=== PATIENT | male | born 1935 | race Caucasian/White ===

== ENCOUNTER 2017-03-06 11:30 | Inpatient (IN) | payer MEDICARE, OTHER ==
[~2017-03-06] VITALS: Ht 177.8 cm; Wt 118.0 kg
[~2017-03-06 11:30] MED LIST: ALFU10TA PO; APIX5TAB PO; ASPI-621 PO; ATOR20TA9 PO; ATOR80TA PO; CARV12.52 PO; CARV6.2512 PO; CEPH-376 PO; CLOP75TA52 PO; GLIP5TAB10 PO; ISOS60TA36 PO; LEVO88TA4 PO; LISI-170 PO; LISI5TAB7 PO; METO25TA35 PO; NITR0.4T SL; TICA90TA PO
[2017-03-06] MEDS ORDERED: DO NOT GIVE XX PRN (12:00)
[2017-03-06] MEDS ORDERED: HEPARIN wt. based STROKE protocol IV PRN (12:00)
[2017-03-06] MEDS ORDERED: HEPARIN 25,000 UNITS/500ML PMX 500 ML ONE (12:40)
[2017-03-06] MEDS: HEPARIN 25,000 UNITS/500ML PMX 500 ML IV PRN ×2 (12:48→12:51)
[2017-03-06] MEDS ORDERED: SODIUM CHLORIDE FLUSH 10ML SYR IVF PRN (13:00)
[2017-03-06] MEDS ORDERED: vitamin E PO (13:32)
[2017-03-06] MEDS ORDERED: fish oil PO (13:32)
[2017-03-06] MEDS ORDERED: vitamin D PO (13:32)
[2017-03-06] MEDS ORDERED: [UNRECOGNIZED DRUG - REMARK] (13:32)
[2017-03-06] MEDS ORDERED: CARV3.1212 PO (13:32)
[2017-03-06] MEDS ORDERED: LECI400C PO (13:33)
[2017-03-06] MEDS ORDERED: GLUCAGON 1 MG IM PRN (14:30)
[2017-03-06] MEDS ORDERED: LABETALOL 5MG/ML, 20ML IVPush PRN (14:30)
[2017-03-06] MEDS ORDERED: BISACODYL 10 MG SUPP PR PRN (14:30)
[2017-03-06] MEDS ORDERED: DEXTROSE 4 GM TAB.CHEW PO PRN (14:30)
[2017-03-06] MEDS ORDERED: ENALAPRILAT 1.25 MG/ML, 2ML IVPush PRN (14:30)
[2017-03-06] MEDS ORDERED: NITROGLYCERIN 0.4 MG BOTTLE (25 TABS) SL PRN (14:30)
[2017-03-06] MEDS ORDERED: HYDROcodone/APAP 5/325 TABLET PO PRN (14:30)
[2017-03-06] MEDS ORDERED: ONDANSETRON 2MG/ML, 2ML IVPush PRN (14:30)
[2017-03-06] MEDS ORDERED: DOCUSATE 100 MG CAPSULE PO PRN (14:30)
[2017-03-06] MEDS ORDERED: ACETAMINOPHEN 325 MG TABLET PO PRN (14:30)
[2017-03-06] MEDS ORDERED: POLYETHYLENE GLYCOL 17 GM PACKET PO PRN (14:30)
[2017-03-06] MEDS ORDERED: morphine SULFATE 10 MG/ML, 1ML IVPush PRN (14:30)
[2017-03-06] MEDS ORDERED: DEXTROSE 50%, 50ML SYRINGE IVPush PRN (14:30)
[2017-03-06 14:38] VITALS: BP 166/72
[2017-03-06 14:56] LABS: IS PT STATUS REG ER OR PRE ER? NO
[2017-03-06] MEDS ORDERED: HEPARIN 25,000 UNITS/500ML PMX 500 ML IV PRN (15:30)
[2017-03-06] MEDS ORDERED: HEPARIN 5,000 UNITS/ML, 1ML IV PRN (15:30)
[2017-03-06] MEDS: INSULIN ASPART 100 UNITS/ML, PEN SQ-INSULIN SCH ×2 (16:00→20:17)
[2017-03-06] MEDS: CARVEDILOL 6.25 MG TABLET PO SCH (18:49)
[2017-03-06 18:52] VITALS: BP 130/77
[2017-03-06 19:52] LABS: IS PT STATUS REG ER OR PRE ER? NO
[2017-03-06] MEDS: ATORVASTATIN 80 MG TABLET PO SCH (20:07)
[2017-03-06] MEDS: SODIUM CHLORIDE FLUSH 10ML SYR IVF SCH (20:07)
[2017-03-07 00:58] VITALS: BP 146/86
[2017-03-07 02:21] LABS: HEMOGLOBIN 12.6 g/dL (13.7-18.0)
[2017-03-07 02:33] LABS: BLOOD UREA NITROGEN 31 mg/dL (7-18)
[2017-03-07 05:57] VITALS: BP 125/76
[2017-03-07] MEDS: ASPIRIN 81 MG TABLET EC PO SCH (05:59)
[2017-03-07] MEDS: LEVOTHYROXINE 88 MCG TABLET PO SCH (05:59)
[2017-03-07] MEDS: CARVEDILOL 6.25 MG TABLET PO SCH ×2 (05:59→16:42)
[2017-03-07] MEDS: INSULIN ASPART 100 UNITS/ML, PEN SQ-INSULIN SCH ×4 (07:00→19:54)
[2017-03-07 07:20] VITALS: BP 122/76
[2017-03-07 07:58] LABS: IS PT STATUS REG ER OR PRE ER? NO
[2017-03-07] MEDS: SODIUM CHLORIDE FLUSH 10ML SYR IVF SCH ×2 (08:17→19:52)
[2017-03-07] MEDS: AMIODARONE 200 MG TABLET PO SCH ×3 (09:50→19:55)
[2017-03-07] MEDS: TICAGRELOR 90 MG TABLET PO SCH ×2 (10:31→19:55)
[2017-03-07] MEDS ORDERED: MIDAZOLAM 1 MG/ML, 5ML ONE (13:33)
[2017-03-07] MEDS ORDERED: FENTANYL PF 100 MCG/2ML ONE (13:33)
[2017-03-07] MEDS ORDERED: VERAPAMIL 2.5 MG/ML, 2ML ONE (13:34)
[2017-03-07] MEDS ORDERED: TICAGRELOR 90 MG TABLET ONE (13:34)
[2017-03-07] MEDS ORDERED: BIVALIRUDIN 250 MG ONE (13:34)
[2017-03-07] MEDS ORDERED: LIDOCAINE 2%, 20ML ONE ×2 (13:34→14:58)
[2017-03-07] MEDS ORDERED: HEPARIN 1,000 UNITS/ML, 10ML ONE (13:34)
[2017-03-07 16:03] VITALS: BP 133/76
[2017-03-07] MEDS: SODIUM CHLORIDE 0.9% 1,000 ML IV SCH (16:43)
[2017-03-07 19:06] VITALS: BP 126/68
[2017-03-07] MEDS: ATORVASTATIN 80 MG TABLET PO SCH (19:55)
[2017-03-08 01:02] VITALS: BP 155/89
[2017-03-08] MEDS: SODIUM CHLORIDE 0.9% 1,000 ML IV SCH (04:36)
[2017-03-08] MEDS: LEVOTHYROXINE 88 MCG TABLET PO SCH (04:36)
[2017-03-08] MEDS: ASPIRIN 81 MG TABLET EC PO SCH (04:36)
[2017-03-08] MEDS: CARVEDILOL 6.25 MG TABLET PO SCH ×2 (04:36→16:41)
[2017-03-08 05:23] LABS: HEMATOCRIT 37.7 % (39.2-51.8); HEMOGLOBIN 12.7 g/dL (13.7-18.0); WHITE BLOOD COUNT 7.5 x10^3/uL (3.4-10)
[2017-03-08 05:33] LABS: BLOOD UREA NITROGEN 23 mg/dL (7-18)
[2017-03-08] MEDS: INSULIN ASPART 100 UNITS/ML, PEN SQ-INSULIN SCH ×4 (07:00→21:00)
[2017-03-08 08:15] VITALS: BP 113/73
[2017-03-08] MEDS: SODIUM CHLORIDE FLUSH 10ML SYR IVF SCH ×2 (08:28→21:33)
[2017-03-08] MEDS: TICAGRELOR 90 MG TABLET PO SCH ×2 (08:28→21:33)
[2017-03-08] MEDS: AMIODARONE 200 MG TABLET PO SCH ×3 (08:28→21:33)
[2017-03-08 14:30] VITALS: BP 122/69
[2017-03-08 20:07] VITALS: BP 147/80
[2017-03-08] MEDS: ATORVASTATIN 80 MG TABLET PO SCH (21:33)
[2017-03-09 01:43] VITALS: BP 123/60
[2017-03-09] MEDS: LEVOTHYROXINE 88 MCG TABLET PO SCH (06:00)
[2017-03-09] MEDS: ASPIRIN 81 MG TABLET EC PO SCH (06:35)
[2017-03-09] MEDS: SODIUM CHLORIDE 0.9% 1,000 ML IV SCH (06:35)
[2017-03-09] MEDS: CARVEDILOL 6.25 MG TABLET PO SCH (06:35)
[2017-03-09] MEDS: INSULIN ASPART 100 UNITS/ML, PEN SQ-INSULIN SCH (07:00)
[2017-03-09 08:18] VITALS: BP 126/63
[2017-03-09] MEDS: SODIUM CHLORIDE FLUSH 10ML SYR IVF SCH (09:00)
[2017-03-09] MEDS: TICAGRELOR 90 MG TABLET PO SCH (09:03)
[2017-03-09] MEDS: AMIODARONE 200 MG TABLET PO SCH (09:03)
[2017-03-09] MEDS ORDERED: AMIO200T42 PO (11:45)
== END 2017-03-09 14:14 | disposition home or self-care (01) | DRG 280 ==
LOC: ED 12:58 → EDIP 12:59 → ED 13:08 → 5SO 14:42 → DCLOUNGE 03-09 13:42
PROVIDERS: ADMIT Family Medicine; ATTEND Family Medicine
PROC: 4A023N7 Measurement of Cardiac Sampling and Pressure, Left Heart, Percutaneous Approach (ICD-10-PCS; principal; 2017-03-06)
PROC: B2131ZZ Fluoroscopy of Multiple Coronary Artery Bypass Grafts using Low Osmolar Contrast (ICD-10-PCS; 2017-03-06)
PROC: B2181ZZ Fluoroscopy of Left Internal Mammary Bypass Graft using Low Osmolar Contrast (ICD-10-PCS; 2017-03-06)
PROC: B2111ZZ Fluoroscopy of Multiple Coronary Arteries using Low Osmolar Contrast (ICD-10-PCS; 2017-03-06)
PROC: B2151ZZ Fluoroscopy of Left Heart using Low Osmolar Contrast (ICD-10-PCS; 2017-03-06)
PROC: B21F1ZZ Fluoroscopy of Other Bypass Graft using Low Osmolar Contrast (ICD-10-PCS; 2017-03-06)
DX: I21.4 Non-ST elevation (NSTEMI) myocardial infarction (principal); I50.33 Acute on chronic diastolic (congestive) heart failure; D68.59 Other primary thrombophilia; E11.22 Type 2 diabetes mellitus with diabetic chronic kidney disease; E11.51 Type 2 diabetes mellitus with diabetic peripheral angiopathy without gangrene; E44.1 Mild protein-calorie malnutrition; N18.3 Chronic kidney disease, stage 3 (moderate); I13.0 Hypertensive heart and chronic kidney disease with heart failure and stage 1 through stage 4 chronic kidney disease, or unspecified chronic kidney disease; I25.719 Atherosclerosis of autologous vein coronary artery bypass graft(s) with unspecified angina pectoris; I48.0 Paroxysmal atrial fibrillation; E03.9 Hypothyroidism, unspecified; G47.33 Obstructive sleep apnea (adult) (pediatric); E78.5 Hyperlipidemia, unspecified; H91.90 Unspecified hearing loss, unspecified ear; I25.10 Atherosclerotic heart disease of native coronary artery without angina pectoris; I34.0 Nonrheumatic mitral (valve) insufficiency; I35.8 Other nonrheumatic aortic valve disorders; I48.2 Chronic atrial fibrillation; I50.9 Heart failure, unspecified; I70.1 Atherosclerosis of renal artery; I71.4 Abdominal aortic aneurysm, without rupture; M10.9 Gout, unspecified; N40.0 Benign prostatic hyperplasia without lower urinary tract symptoms; Z87.891 Personal history of nicotine dependence; Z90.49 Acquired absence of other specified parts of digestive tract; Z95.0 Presence of cardiac pacemaker; Z95.5 Presence of coronary angioplasty implant and graft; I25.82 Chronic total occlusion of coronary artery
CPT/HCPCS: 36415; 80048; 80061; 82962; 83735; 83880; 84100; 84439; 84443; 84484; 85025; 85520; 93005; 93306; 93459; 99156; 99285; C1760; C1769; C1894; J0583; J1644; J2250; J3010; J3490; J7030; Q9967

== ENCOUNTER 2017-08-29 08:55 | Emergency (ER) | payer MEDICARE, OTHER ==
[~2017-08-29] VITALS: Ht 177.8 cm; Wt 90.0 kg
[~2017-08-29 08:55] MED LIST changes: +AMIO200T42 PO; +CARV3.1212 PO; +LECI400C PO; +[UNRECOGNIZED DRUG - REMARK]; +fish oil PO; +vitamin D PO; +vitamin E PO
[2017-08-29 09:58] LABS: BASOPHILS # (AUTO) 0.01 x10^3/uL (0-0.1); BASOPHILS % (AUTO) 0 % (0-1); EOSINOPHILS # (AUTO) 0.15 x10^3/uL (0-0.4); EOSINOPHILS % (AUTO) 3 % (1-7); LYMPHOCYTES # (AUTO) 1.09 x10^3/uL (1-3.4); LYMPHOCYTES % (AUTO) 21 % (22-44); MD NO; MEAN CORPUSCULAR HEMOGLOBIN 31.5 pg (27.5-34.5); MEAN CORPUSCULAR HGB CONC 33.3 g/dL (33.2-36.2); MEAN CORPUSCULAR VOLUME 94.7 fL (81-97); MEAN PLATELET VOLUME 8.1 fL (7.4-10.4); MONOCYTES # (AUTO) 0.47 x10^3/uL (0.2-0.8); MONOCYTES % (AUTO) 9 % (2-9); NEUTROPHILS # (AUTO) 3.42 x10^3/uL (1.8-6.8); NEUTROPHILS % (AUTO) 67 % (42-75); PLATELET COUNT 143 x10^3/uL (130-400); RED BLOOD COUNT 3.97 x10^6/uL (4.38-5.82); RED CELL DISTRIBUTION WIDTH 13.7 % (9.4-14.8)
[2017-08-29 10:07] LABS: INTERNATIONAL NORMALIZED RATIO 1.13 (0.93-1.1); PROTHROMBIN TIME 11.7 Seconds (9.6-11.5)
[2017-08-29 10:11] LABS: ALANINE AMINOTRANSFERASE 62 U/L (12-78); ALBUMIN 2.7 g/dL (3.4-5.0); ANION GAP 8 mmol/L (5-15); CALCIUM 8.1 mg/dL (8.5-10.1); CHLORIDE 112 mmol/L (98-107); CREATININE 1.78 mg/dL (0.7-1.3)
[2017-08-29 10:16] LABS: ALKALINE PHOSPHATASE 53 U/L (45-117); TOTAL PROTEIN 6.1 g/dL (6.4-8.2); TROPONIN I 0.058 ng/mL (0.000-0.045)
[2017-08-29 10:51] VITALS: BP 106/58
[2017-08-29 11:55] LABS: TROPONIN I 0.055 ng/mL (0.000-0.045)
== END 2017-08-29 13:26 | disposition left against medical advice (07) ==
LOC: ED 10:00
DX: R07.89 Other chest pain (principal); I10 Essential (primary) hypertension; I21.9 Acute myocardial infarction, unspecified; E11.9 Type 2 diabetes mellitus without complications; I25.110 Atherosclerotic heart disease of native coronary artery with unstable angina pectoris; I48.91 Unspecified atrial fibrillation; N40.0 Benign prostatic hyperplasia without lower urinary tract symptoms; E07.9 Disorder of thyroid, unspecified; Z79.4 Long term (current) use of insulin; Z95.1 Presence of aortocoronary bypass graft
CPT/HCPCS: 36415; 71045; 80053; 84484; 85025; 85610; 85730; 93005; 99285